=== PATIENT | female | born 1935 | race Caucasian/White ===

== ENCOUNTER 2016-09-28 15:42 | Observation (INO) | payer OTHER, MEDICARE ==
[~2016-09-28] VITALS: Ht 162.6 cm; Wt 85.2 kg
[2016-09-28 16:43] LABS: HEMATOCRIT 36.4 % (36.0-46.0); MCH 30.3 PG (29.0-34.0); MCV 91.9 FL (83-99); MEAN PLAT.VOLUME 10.3 uM^3 (9.5-12.4); PLATELET COUNT 195 K/uL (156-360); RBC DIS.WIDTH-CV 12.5 % (11.8-14.6); RBC DIS.WIDTH-SD 41.7 % (39-53); RED BLOOD COUNT 3.96 M/uL (3.80-5.20); WHITE BLOOD COUNT 7.1 K/uL (4.1-10.2)
[2016-09-28 16:54] LABS: CHLORIDE 105 mEq/L (99-109); POTASSIUM 4.3 mEq/L (3.7-5.4); SODIUM 138 mEq/L (136-147)
[2016-09-28 16:56] LABS: GLUCOSE 100 mg/dL (70-99)
[2016-09-28 16:58] LABS: ANION GAP 8 MEQ/L (2-14)
[2016-09-28 17:00] LABS: GFR ESTIMATE (CALCULATED) > 59 mL/min/
[2016-09-28 17:01] LABS: UREA NITROGEN (BUN) 27 mg/dL (9-23)
[2016-09-28 17:05] LABS: TROP-I INTERPRETATION NEGATIVE; TROPONIN-I < 0.01 ng/mL (0.0-0.30)
[2016-09-28] MEDS ORDERED: LOSARTAN POTASS50 MG PO (17:32)
[2016-09-28] MEDS ORDERED: LORAZEPAM0.5 MG PO (17:32)
[2016-09-28] MEDS ORDERED: SYNTHROID25 MCG PO (17:32)
[2016-09-28] MEDS ORDERED: MIRTAZAPINE30 MG PO (17:32)
[2016-09-28] MEDS ORDERED: NITROSTAT0.4 MG SL (17:34)
[2016-09-28] MEDS ORDERED: KEPPRA1000 MG PO (17:34)
[2016-09-28] MEDS ORDERED: OMEPRAZOLE20 MG PO (17:34)
[2016-09-28] MEDS ORDERED: LO-DOSE ASPIRIN81 M2 PO (17:34)
[2016-09-28] MEDS ORDERED: DESYREL100 MG PO (17:34)
[2016-09-28] MEDS ORDERED: OSTEO BI-FLEX1 EAC1 PO (17:34)
[2016-09-28] MEDS ORDERED: ZOLOFT100 MG PO (17:34)
[2016-09-28 17:41] LABS: ADD MIUA? YES; BILIRUBIN NEGATIVE; BLOOD NEGATIVE; COLOR YELLOW ((YELLOW)); GLUCOSE (STRIP) NEGATIVE; KETONES NEGATIVE; LEUKOCYTES TRACE; NITRITE POSITIVE; PROTEIN (STRIP) NEGATIVE; SPECIFIC GRAVITY 1.025 (1.000-1.030); UROBILINOGEN 0.2 MG/DL (0.2-1.0)
[2016-09-28 18:03] LABS: BACTERIA 3+ /HPF; CASTS NONE SEEN /LPF; CRYSTALS NONE SEEN; EPITHELIAL CELLS 1+ /HPF; MUCUS NONE SEEN /LPF; RED BLOOD CELLS 0-5 /HPF (0-5); UCUL ADDED? NO; WHITE BLOOD CELLS 0-5 /HPF (0-5)
[2016-09-28 19:52] VITALS: BP 151/70
[2016-09-28 23:59] VITALS: BP 100/49
[2016-09-29 00:16] LABS: TROP-I INTERPRETATION NEGATIVE; TROPONIN-I 0.01 ng/mL (0.0-0.30)
[2016-09-29 03:37] VITALS: BP 135/60
[2016-09-29 06:00] LABS: HEMATOCRIT 36.6 % (36.0-46.0); MCH 31.2 PG (29.0-34.0); MCHC 33.1 G/DL (30.0-36.0); MCV 94.3 FL (83-99); MEAN PLAT.VOLUME 10.6 uM^3 (9.5-12.4); PLATELET COUNT 179 K/uL (156-360); RBC DIS.WIDTH-CV 12.7 % (11.8-14.6); RBC DIS.WIDTH-SD 43.8 % (39-53); RED BLOOD COUNT 3.88 M/uL (3.80-5.20); WHITE BLOOD COUNT 5.6 K/uL (4.1-10.2)
[2016-09-29 06:25] LABS: TROP-I INTERPRETATION NEGATIVE; TROPONIN-I < 0.01 ng/mL (0.0-0.30)
[2016-09-29 06:52] LABS: ALKALINE PHOSPHATASE 63 IU/L (3-129); ANION GAP 8 MEQ/L (2-14); CHLORIDE 106 MEQ/L (99-109); GFR ESTIMATE (CALCULATED) > 59 mL/min/; GLUCOSE 92 mg/dL (70-99); POTASSIUM 4.1 MEQ/L (3.7-5.4); SAMPLE HEMOLYSIS CHECK 0; SAMPLE ICTERIC CHECK 0; SAMPLE LIPEMIA CHECK 0; SODIUM 138 MEQ/L (136-147); TOTAL BILIRUBIN 0.4 MG/DL (0.0-1.0); UREA NITROGEN (BUN) 22 mg/dL (9-23)
[2016-09-29 08:36] VITALS: BP 124/60
[2016-09-29 12:28] VITALS: BP 146/66
[2016-09-29] MEDS ORDERED: ATENOLOL25 MG PO (12:52)
== END 2016-09-29 13:52 | disposition home or self-care (01) ==
LOC: EME 15:42 → EDOF 18:14 → 5WEST 18:14
PROVIDERS: Internal Medicine; Physician Assistant
DX: R07.89 Other chest pain (principal); N17.9 Acute kidney failure, unspecified; I10 Essential (primary) hypertension; M17.0 Bilateral primary osteoarthritis of knee; G40.909 Epilepsy, unspecified, not intractable, without status epilepticus; E03.9 Hypothyroidism, unspecified; F32.9 Major depressive disorder, single episode, unspecified; F41.9 Anxiety disorder, unspecified; Z86.73 Personal history of transient ischemic attack (TIA), and cerebral infarction without residual deficits
CPT/HCPCS: 71020; 80048; 80053; 81003; 84484; 85027; 93005; 99281; 99284; G0378; J1644; J7030

== ENCOUNTER 2016-12-13 19:08 | Inpatient (IN) | payer OTHER, MEDICARE ==
[~2016-12-13] VITALS: Ht 175.3 cm; Wt 85.7 kg
[~2016-12-13 19:08] MED LIST: ATENOLOL25 MG PO; KEPPRA1000 MG PO; LO-DOSE ASPIRIN81 M2 PO; LORAZEPAM0.5 MG PO; LOSARTAN POTASS50 MG PO; MIRTAZAPINE30 MG PO; NITROSTAT0.4 MG SL; OMEPRAZOLE20 MG PO; OSTEO BI-FLEX1 EAC1 PO; SYNTHROID25 MCG PO; TRAZODONE HCL50 MG PO; ZOLOFT50 MG PO
[2016-12-13 20:48] LABS: HEMATOCRIT 35.3 % (36.0-46.0); MCH 30.8 PG (29.0-34.0); MCHC 33.1 G/DL (30.0-36.0); MCV 92.9 FL (83-99); MEAN PLAT.VOLUME 10.3 uM^3 (9.5-12.4); PLATELET COUNT 162 K/uL (156-360); RBC DIS.WIDTH-CV 12.6 % (11.8-14.6); WHITE BLOOD COUNT 8.6 K/uL (4.1-10.2)
[2016-12-13 21:02] LABS: CHLORIDE 109 mEq/L (99-109); POTASSIUM 3.5 mEq/L (3.7-5.4); SODIUM 141 mEq/L (136-147)
[2016-12-13 21:04] LABS: GLUCOSE 118 mg/dL (70-99)
[2016-12-13 21:05] LABS: ANION GAP 8 MEQ/L (2-14)
[2016-12-13 21:08] LABS: GFR ESTIMATE (CALCULATED) > 59 mL/min/
[2016-12-13 21:09] LABS: UREA NITROGEN (BUN) 18 mg/dL (9-23)
[2016-12-13 21:16] LABS: TROP-I INTERPRETATION NEGATIVE; TROPONIN-I 0.02 ng/mL (0.0-0.30)
[2016-12-13] MEDS ORDERED: FISH OIL 1,0001 EAC7 PO (23:59)
[2016-12-14 00:01] VITALS: BP 135/63
[2016-12-14] MEDS ORDERED: CALCIUM 600 WI1 EAC2 PO (00:01)
[2016-12-14] MEDS ORDERED: DAILY MULTIPLE1 EACH PO (00:01)
[2016-12-14] MEDS ORDERED: LOPRESSOR25 MG PO (00:02)
[2016-12-14 04:03] VITALS: BP 123/58
[2016-12-14 08:55] VITALS: BP 130/62
[2016-12-14 12:03] VITALS: BP 132/81
[2016-12-14 12:39] LABS: TROP-I INTERPRETATION NEGATIVE; TROPONIN-I 0.01 ng/mL (0.0-0.30)
[2016-12-14 19:12] LABS: TROP-I INTERPRETATION NEGATIVE; TROPONIN-I 0.03 ng/mL (0.0-0.30)
[2016-12-14 20:18] VITALS: BP 154/68
[2016-12-14 23:39] VITALS: BP 119/58
[2016-12-15 03:38] VITALS: BP 139/80
[2016-12-15 06:30] LABS: HEMATOCRIT 34.6 % (36.0-46.0); MCH 32.1 PG (29.0-34.0); MCHC 33.2 G/DL (30.0-36.0); MCV 96.6 FL (83-99); MEAN PLAT.VOLUME 10.6 uM^3 (9.5-12.4); PLATELET COUNT 150 K/uL (156-360); RBC DIS.WIDTH-CV 12.7 % (11.8-14.6); RBC DIS.WIDTH-SD 44.7 % (39-53); RED BLOOD COUNT 3.58 M/uL (3.80-5.20); WHITE BLOOD COUNT 5.9 K/uL (4.1-10.2)
[2016-12-15 06:55] LABS: ANION GAP 9 MEQ/L (2-14); CHLORIDE 107 MEQ/L (99-109); GFR ESTIMATE (CALCULATED) > 59 mL/min/; GLUCOSE 106 mg/dL (70-99); SAMPLE HEMOLYSIS CHECK 1; SAMPLE ICTERIC CHECK 0; SAMPLE LIPEMIA CHECK 0; SODIUM 140 MEQ/L (136-147); UREA NITROGEN (BUN) 13 mg/dL (9-23)
[2016-12-15 06:57] LABS: POTASSIUM 4.4 MEQ/L (3.7-5.4)
[2016-12-15 08:09] VITALS: BP 142/82
[2016-12-15 13:10] LABS: ADD MIUA? YES; BILIRUBIN NEGATIVE; BLOOD NEGATIVE; COLOR YELLOW ((YELLOW)); GLUCOSE (STRIP) NEGATIVE; KETONES NEGATIVE; LEUKOCYTES TRACE; NITRITE POSITIVE; PROTEIN (STRIP) NEGATIVE; SPECIFIC GRAVITY 1.019 (1.000-1.030); UROBILINOGEN 0.2 MG/DL (0.2-1.0)
[2016-12-15 14:01] LABS: BACTERIA 1+ /HPF; EPITHELIAL CELLS 2+ /HPF; MUCUS NONE SEEN /LPF; RED BLOOD CELLS 0-5 /HPF (0-5); WHITE BLOOD CELLS 0-5 /HPF (0-5)
[2016-12-15 20:05] VITALS: BP 160/80
[2016-12-15 23:41] VITALS: BP 140/78
[2016-12-16 05:52] VITALS: BP 160/88
[2016-12-16 07:26] VITALS: BP 183/86
[2016-12-16 11:32] VITALS: BP 146/66
[2016-12-16 20:11] VITALS: BP 150/69
[2016-12-16 21:00] VITALS: BP 132/64
[2016-12-16 23:44] VITALS: BP 124/60
[2016-12-17 04:27] VITALS: BP 172/85
[2016-12-17 04:42] VITALS: BP 138/66
[2016-12-17 07:37] VITALS: BP 184/86
[2016-12-17] MEDS ORDERED: LOPRESSOR50 MG PO (10:50)
[2016-12-17 10:54] VITALS: BP 118/58
[2016-12-17 14:18] VITALS: BP 126/68
== END 2016-12-17 17:50 | DRG 536 ==
LOC: EME 19:08 → EDOF 22:19 → 3EAST 22:19 → ENRESERV 22:21 → 3EAST 23:40
PROVIDERS: Emergency Medicine; Internal Medicine; Physician Assistant
DX: S32.452A Displaced transverse fracture of left acetabulum, initial encounter for closed fracture (principal); G40.209 Localization-related (focal) (partial) symptomatic epilepsy and epileptic syndromes with complex partial seizures, not intractable, without status epilepticus; I27.2 Other secondary pulmonary hypertension; W18.39XA Other fall on same level, initial encounter; Y93.01 Activity, walking, marching and hiking; E03.9 Hypothyroidism, unspecified; F32.9 Major depressive disorder, single episode, unspecified; I10 Essential (primary) hypertension; I35.0 Nonrheumatic aortic (valve) stenosis; K21.9 Gastro-esophageal reflux disease without esophagitis; K42.9 Umbilical hernia without obstruction or gangrene; K57.30 Diverticulosis of large intestine without perforation or abscess without bleeding; M48.06 Spinal stenosis, lumbar region; K44.9 Diaphragmatic hernia without obstruction or gangrene; K80.20 Calculus of gallbladder without cholecystitis without obstruction; M17.0 Bilateral primary osteoarthritis of knee; R29.6 Repeated falls; R32 Unspecified urinary incontinence; S80.01XA Contusion of right knee, initial encounter; S80.02XA Contusion of left knee, initial encounter; Y92.009 Unspecified place in unspecified non-institutional (private) residence as the place of occurrence of the external cause; Z79.82 Long term (current) use of aspirin; Z79.899 Other long term (current) drug therapy; Z82.3 Family history of stroke; Z82.49 Family history of ischemic heart disease and other diseases of the circulatory system; Z86.73 Personal history of transient ischemic attack (TIA), and cerebral infarction without residual deficits; Z87.820 Personal history of traumatic brain injury; Z90.710 Acquired absence of both cervix and uterus; M79.604 Pain in right leg; R55 Syncope and collapse; I08.1 Rheumatic disorders of both mitral and tricuspid valves; Z86.718 Personal history of other venous thrombosis and embolism; M51.36 Other intervertebral disc degeneration, lumbar region; I49.1 Atrial premature depolarization
CPT/HCPCS: 70450; 71010; 73502; 73560; 73564; 74176; 80048; 81003; 84443; 84484; 85027; 87086; 93005; 93306; 99281; 99284; J1644; J1956; J2270; J2405; J7030

== ENCOUNTER 2017-01-04 15:59 | Inpatient (IN) | payer OTHER, MEDICARE ==
[~2017-01-04] VITALS: Ht 165.1 cm; Wt 88.4 kg
[~2017-01-04 15:59] MED LIST changes: +CALCIUM 600 WI1 EAC2 PO; +COZAAR25 MG PO; +DAILY MULTIPLE1 EACH PO; +FISH OIL 1,0001 EAC7 PO; +LOPRESSOR25 MG PO; +LOPRESSOR50 MG PO; -LOSARTAN POTASS50 MG PO
[2017-01-04 16:48] LABS: MCH 30.8 PG (29.0-34.0); MCHC 33.5 G/DL (30.0-36.0); PLATELET COUNT 212 K/uL (156-360); RBC DIS.WIDTH-CV 12.3 % (11.8-14.6); RBC DIS.WIDTH-SD 41.9 % (39-53); RED BLOOD COUNT 4.02 M/uL (3.80-5.20); WHITE BLOOD COUNT 10.4 K/uL (4.1-10.2)
[2017-01-04 16:52] LABS: INTER. NORMALIZED RATIO 1.1; PROTHROMBIN TIME 12.4 SEC (10.2-12.9)
[2017-01-04 16:54] LABS: PTT 27.2 SEC (25-37)
[2017-01-04 16:55] LABS: CHLORIDE 105 mEq/L (99-109); POTASSIUM 3.7 mEq/L (3.7-5.4); SODIUM 138 mEq/L (136-147)
[2017-01-04 16:56] LABS: GLUCOSE 114 mg/dL (70-99)
[2017-01-04 16:58] LABS: ANION GAP 13 MEQ/L (2-14)
[2017-01-04 17:00] LABS: GFR ESTIMATE (CALCULATED) > 59 mL/min/
[2017-01-04 17:01] LABS: UREA NITROGEN (BUN) 21 mg/dL (9-23)
[2017-01-04 17:40] LABS: TROP-I INTERPRETATION NEGATIVE; TROPONIN-I 0.02 ng/mL (0.0-0.30)
[2017-01-04] MEDS ORDERED: ATIVAN0.5 MG PO ×2 (19:40)
[2017-01-04] MEDS ORDERED: COZAAR50 MG PO (19:42)
[2017-01-04] MEDS ORDERED: SERTRALINE HCL25 MG PO (19:46)
[2017-01-04] MEDS ORDERED: SENNA PLUS TAB1 EACH PO (19:46)
[2017-01-04] MEDS ORDERED: BIOFREEZE GEL TP (19:47)
[2017-01-04] MEDS ORDERED: LOPRESSOR25 MG PO (19:48)
[2017-01-04] MEDS ORDERED: LOPRESSOR50 MG PO (19:49)
[2017-01-04] MEDS ORDERED: PHILLIPS'400 MG/5 M PO (19:50)
[2017-01-04] MEDS ORDERED: DULCOLAX10 MG PR (19:50)
[2017-01-04] MEDS ORDERED: PERCOCET 5/31 TABLET PO (19:51)
[2017-01-04] MEDS ORDERED: TYLENOL REGULA325 MG PO (19:51)
[2017-01-04] MEDS ORDERED: MIRALAX119 GM PO (19:51)
[2017-01-04] MEDS ORDERED: ZOFRAN4 MG PO (19:52)
[2017-01-05 00:31] VITALS: BP 143/69
[2017-01-05 03:51] VITALS: BP 150/66
[2017-01-05 06:50] LABS: MCH 30.5 PG (29.0-34.0); MCHC 31.8 G/DL (30.0-36.0); MCV 95.9 FL (83-99); MEAN PLAT.VOLUME 9.9 uM^3 (9.5-12.4); PLATELET COUNT 211 K/uL (156-360); RBC DIS.WIDTH-CV 12.7 % (11.8-14.6); RBC DIS.WIDTH-SD 44.5 % (39-53); RED BLOOD COUNT 3.44 M/uL (3.80-5.20); WHITE BLOOD COUNT 7.8 K/uL (4.1-10.2)
[2017-01-05 07:03] LABS: POINT-OF-CARE METER ID UU14188577
[2017-01-05 07:49] LABS: ANION GAP 6 MEQ/L (2-14); CHLORIDE 106 MEQ/L (99-109); GFR ESTIMATE (CALCULATED) > 59 mL/min/; GLUCOSE 110 mg/dL (70-99); POTASSIUM 4.2 MEQ/L (3.7-5.4); SAMPLE HEMOLYSIS CHECK 0; SAMPLE ICTERIC CHECK 0; SAMPLE LIPEMIA CHECK 0; SODIUM 139 MEQ/L (136-147); UREA NITROGEN (BUN) 22 mg/dL (9-23)
[2017-01-05 08:04] VITALS: BP 147/86
[2017-01-05 12:01] VITALS: BP 143/90
[2017-01-05 19:25] VITALS: BP 140/68
[2017-01-05 23:45] VITALS: BP 98/52
[2017-01-06 03:45] VITALS: BP 109/54
[2017-01-06 06:45] LABS: MCH 30.6 PG (29.0-34.0); MCHC 31.5 G/DL (30.0-36.0); MEAN PLAT.VOLUME 10.2 uM^3 (9.5-12.4); PLATELET COUNT 171 K/uL (156-360); RBC DIS.WIDTH-CV 12.5 % (11.8-14.6); RBC DIS.WIDTH-SD 43.4 % (39-53); WHITE BLOOD COUNT 8.9 K/uL (4.1-10.2)
[2017-01-06 07:13] LABS: ANION GAP 6 MEQ/L (2-14); CHLORIDE 109 MEQ/L (99-109); GFR ESTIMATE (CALCULATED) > 59 mL/min/; GLUCOSE 102 mg/dL (70-99); POTASSIUM 4.1 MEQ/L (3.7-5.4); SAMPLE HEMOLYSIS CHECK 0; SAMPLE ICTERIC CHECK 0; SAMPLE LIPEMIA CHECK 0; SODIUM 139 MEQ/L (136-147); UREA NITROGEN (BUN) 22 mg/dL (9-23)
[2017-01-06 07:27] LABS: RED BLOOD COUNT 2.68 M/uL (3.80-5.20)
[2017-01-06 07:47] VITALS: BP 123/57
[2017-01-06 11:34] LABS: ADD MIUA? YES; BILIRUBIN NEGATIVE; BLOOD NEGATIVE; COLOR YELLOW ((YELLOW)); GLUCOSE (STRIP) NEGATIVE; KETONES 5; LEUKOCYTES NEGATIVE; NITRITE NEGATIVE; PROTEIN (STRIP) NEGATIVE; UROBILINOGEN 0.2 MG/DL (0.2-1.0)
[2017-01-06 11:50] VITALS: BP 122/56
[2017-01-06 12:18] LABS: RED BLOOD CELLS RARE /HPF (0-5); WHITE BLOOD CELLS RARE /HPF (0-5)
[2017-01-06 12:19] LABS: BACTERIA 2+ /HPF; CASTS NONE SEEN /LPF; CRYSTALS NONE SEEN; EPITHELIAL CELLS 2+ /HPF; MUCUS NONE SEEN /LPF; UCUL ADDED? YES
[2017-01-06 16:40] VITALS: BP 120/55
[2017-01-06 18:29] LABS: HEMATOCRIT 26.7 % (36.0-46.0); MCV 97.1 FL (83-99)
[2017-01-06 19:21] VITALS: BP 147/64
[2017-01-06 21:36] VITALS: BP 106/53
[2017-01-07 04:57] LABS: HEMATOCRIT 24.9 % (36.0-46.0); MCH 31.1 PG (29.0-34.0); MCHC 32.9 G/DL (30.0-36.0); MCV 94.3 FL (83-99); MEAN PLAT.VOLUME 9.9 uM^3 (9.5-12.4); PLATELET COUNT 169 K/uL (156-360); RBC DIS.WIDTH-CV 12.5 % (11.8-14.6); RBC DIS.WIDTH-SD 42.7 % (39-53); RED BLOOD COUNT 2.64 M/uL (3.80-5.20); WHITE BLOOD COUNT 8.3 K/uL (4.1-10.2)
[2017-01-07 05:03] LABS: INTER. NORMALIZED RATIO 1.3; PROTHROMBIN TIME 14.1 SEC (10.2-12.9)
[2017-01-07 05:06] LABS: PTT 26.7 SEC (25-37)
[2017-01-07 06:01] VITALS: BP 143/65
[2017-01-07 07:56] VITALS: BP 144/68
[2017-01-07 11:50] VITALS: BP 145/87
[2017-01-07 16:47] VITALS: BP 155/72
[2017-01-07 19:22] VITALS: BP 166/70
[2017-01-08] VITALS (7 sets, daily range): BP systolic 131–156; BP diastolic 61–73
[2017-01-08 06:50] LABS: HEMATOCRIT 23.9 % (36.0-46.0); MCHC 33.1 G/DL (30.0-36.0); MCV 96.8 FL (83-99); MEAN PLAT.VOLUME 10.5 uM^3 (9.5-12.4); PLATELET COUNT 147 K/uL (156-360); RBC DIS.WIDTH-SD 45.4 % (39-53); RED BLOOD COUNT 2.47 M/uL (3.80-5.20); WHITE BLOOD COUNT 6.4 K/uL (4.1-10.2)
[2017-01-09 03:19] VITALS: BP 118/53
[2017-01-09 07:25] VITALS: BP 165/71
[2017-01-09 08:38] LABS: HEMATOCRIT 26.5 % (36.0-46.0); MCH 30.5 PG (29.0-34.0); MCHC 30.6 G/DL (30.0-36.0); MCV 99.6 FL (83-99); MEAN PLAT.VOLUME 10.7 uM^3 (9.5-12.4); PLATELET COUNT 172 K/uL (156-360); RBC DIS.WIDTH-SD 46.7 % (39-53); RED BLOOD COUNT 2.66 M/uL (3.80-5.20); WHITE BLOOD COUNT 7.1 K/uL (4.1-10.2)
[2017-01-09 11:12] VITALS: BP 123/59
[2017-01-09 15:37] VITALS: BP 130/88
[2017-01-09 20:15] VITALS: BP 133/66
[2017-01-09 23:45] VITALS: BP 138/69
[2017-01-10 04:15] VITALS: BP 168/74
[2017-01-10 07:12] VITALS: BP 134/66
[2017-01-10 08:10] LABS: HEMATOCRIT 25.1 % (36.0-46.0); MCH 30.9 PG (29.0-34.0); MCHC 32.7 G/DL (30.0-36.0); MEAN PLAT.VOLUME 10.8 uM^3 (9.5-12.4); PLATELET COUNT 206 K/uL (156-360); RBC DIS.WIDTH-CV 12.9 % (11.8-14.6); RBC DIS.WIDTH-SD 44.7 % (39-53); RED BLOOD COUNT 2.65 M/uL (3.80-5.20); WHITE BLOOD COUNT 6.1 K/uL (4.1-10.2)
[2017-01-10 08:11] LABS: MCV 94.7 FL (83-99)
[2017-01-10] MEDS ORDERED: LOPRESSOR50 MG PO (10:41)
[2017-01-10] MEDS ORDERED: ELIQUIS5 MG PO (10:41)
[2017-01-10] MEDS ORDERED: AMLODIPINE BESYL5 MG PO (10:41)
[2017-01-10] MEDS ORDERED: SILDENAFIL20 MG PO (10:41)
[2017-01-10 11:14] VITALS: BP 135/66
== END 2017-01-10 12:39 | DRG 956 ==
LOC: EME 15:59 → 3EAST 21:53 → EDOF 21:53 → ENRESERV 21:59 → 3EAST 23:17
PROVIDERS: Emergency Medicine; Hospitalist; Orthopaedic Surgery; Physician Assistant
PROC: 0SRS019 Replacement of Left Hip Joint, Femoral Surface with Metal Synthetic Substitute, Cemented, Open Approach (ICD-10-PCS; principal; 2017-01-05)
DX: S72.012A Unspecified intracapsular fracture of left femur, initial encounter for closed fracture (principal); I26.99 Other pulmonary embolism without acute cor pulmonale; T79.0XXA Air embolism (traumatic), initial encounter; I82.812 Embolism and thrombosis of superficial veins of left lower extremity; D62 Acute posthemorrhagic anemia; W23.1XXA Caught, crushed, jammed, or pinched between stationary objects, initial encounter; I10 Essential (primary) hypertension; I27.2 Other secondary pulmonary hypertension; G40.909 Epilepsy, unspecified, not intractable, without status epilepticus; F41.9 Anxiety disorder, unspecified; R35.0 Frequency of micturition; R39.15 Urgency of urination; K44.9 Diaphragmatic hernia without obstruction or gangrene; E03.9 Hypothyroidism, unspecified; K21.9 Gastro-esophageal reflux disease without esophagitis; E66.9 Obesity, unspecified; S32.402D Unspecified fracture of left acetabulum, subsequent encounter for fracture with routine healing; W18.39XD Other fall on same level, subsequent encounter; Y92.531 Health care provider office as the place of occurrence of the external cause; Z79.82 Long term (current) use of aspirin; Z86.718 Personal history of other venous thrombosis and embolism; Z68.32 Body mass index [BMI] 32.0-32.9, adult; Z87.820 Personal history of traumatic brain injury; Z90.710 Acquired absence of both cervix and uterus; Z86.73 Personal history of transient ischemic attack (TIA), and cerebral infarction without residual deficits; Z88.0 Allergy status to penicillin; Z82.3 Family history of stroke; Z82.49 Family history of ischemic heart disease and other diseases of the circulatory system
CPT/HCPCS: 71010; 71275; 72170; 73502; 80048; 81003; 82272; 82948; 84484; 85014; 85018; 85027; 85610; 85730; 86850; 86900; 86901; 87086; 93005; 93970; 94010; 94799; 99281; 99285; C1713; J0131; J0330; J1100; J1170; J1644; J1650; J1885; J2270; J2405; J2710; J3010; J7030

== ENCOUNTER 2017-01-10 19:35 | Emergency (ER) | payer OTHER, MEDICARE ==
[~2017-01-10] VITALS: Ht 162.6 cm; Wt 91.8 kg
[~2017-01-10 19:35] MED LIST changes: +AMLODIPINE BESYL5 MG PO; +ATIVAN0.5 MG PO; +BIOFREEZE GEL TP; +COZAAR50 MG PO; +DULCOLAX10 MG PR; +ELIQUIS5 MG PO; +MIRALAX119 GM PO; +PERCOCET 5/31 TABLET PO; +PHILLIPS'400 MG/5 M PO; +SENNA PLUS TAB1 EACH PO; +SERTRALINE HCL25 MG PO; +SILDENAFIL20 MG PO; +TYLENOL REGULA325 MG PO; +ZOFRAN4 MG PO
[2017-01-11 01:14] VITALS: BP 147/66
== END 2017-01-11 01:16 ==
LOC: EME → EDBD 19:35 → EME 19:35
DX: S09.90XA Unspecified injury of head, initial encounter (principal); W18.39XA Other fall on same level, initial encounter; Y92.121 Bathroom in nursing home as the place of occurrence of the external cause; Z96.642 Presence of left artificial hip joint; Z98.890 Other specified postprocedural states; Z79.01 Long term (current) use of anticoagulants; Z79.82 Long term (current) use of aspirin; I10 Essential (primary) hypertension; M85.88 Other specified disorders of bone density and structure, other site; M47.892 Other spondylosis, cervical region
CPT/HCPCS: 70450; 72125; 73502; 99281; 99285

== ENCOUNTER 2017-09-13 08:04 | Observation (INO) | payer OTHER, MEDICARE ==
[~2017-09-13] VITALS: Ht 165.1 cm; Wt 88.6 kg
[~2017-09-13 08:04] MED LIST changes: -SERTRALINE HCL25 MG PO; +ZOLOFT100 MG PO
[2017-09-13 08:49] LABS: BASOPHIL (%) 0.9 % (0-1); BASOPHIL COUNT 0.1 K/uL (0-0.1); EOSINOPHIL (%) 1.7 % (0-5); EOSINOPHIL COUNT 0.1 K/uL (0-0.3); HEMATOCRIT 35.2 % (36.0-46.0); HEMOGLOBIN 11.6 G/DL (11.9-15.5); IMMATURE GRANULOCYTE (%) 0.3 % (0.0-0.7); LYMPHOCYTE (%) 14.6 % (15-42); LYMPHOCYTE COUNT 1.1 K/uL (1.0-2.8); MCH 30.4 PG (29.0-34.0); MCV 92.4 FL (83-99); MONOCYTE (%) 6.8 % (3-12); MONOCYTE COUNT 0.5 K/uL (0-0.8); NEUTROPHIL (%) 75.7 % (45-76); NEUTROPHIL COUNT 5.7 K/uL (1.8-6.4); PLATELET COUNT 182 K/uL (156-360); RBC DIS.WIDTH-CV 13.2 % (11.8-14.6); RBC DIS.WIDTH-SD 44.5 % (39-53); RED BLOOD COUNT 3.81 M/uL (3.80-5.20); WHITE BLOOD COUNT 7.5 K/uL (4.1-10.2)
[2017-09-13 09:00] LABS: CHLORIDE 108 mEq/L (99-109); POTASSIUM 4.1 mEq/L (3.7-5.4); SODIUM 140 mEq/L (136-147)
[2017-09-13 09:01] LABS: GLUCOSE 102 mg/dL (70-99)
[2017-09-13 09:05] LABS: CREATININE 0.8 mg/dL (0.6-1.3); GFR ESTIMATE (CALCULATED) > 59 mL/min/
[2017-09-13 09:06] LABS: UREA NITROGEN (BUN) 21 mg/dL (9-23)
[2017-09-13 09:09] LABS: TROP-I INTERPRETATION NEGATIVE; TROPONIN-I < 0.01 ng/mL (0.0-0.30)
[2017-09-13] MEDS ORDERED: ATIVAN0.5 MG PO (10:37)
[2017-09-13] MEDS ORDERED: K-DUR20 MEQ PO (10:38)
[2017-09-13] MEDS ORDERED: LOPRESSOR100 M1 PO (10:40)
[2017-09-13 11:19] VITALS: BP 169/74
[2017-09-13 16:32] LABS: TROP-I INTERPRETATION NEGATIVE; TROPONIN-I < 0.01 ng/mL (0.0-0.30)
[2017-09-13 17:00] VITALS: BP 173/78
[2017-09-13 18:40] VITALS: BP 148/71
[2017-09-13 22:10] LABS: TROP-I INTERPRETATION NEGATIVE; TROPONIN-I < 0.01 ng/mL (0.0-0.30)
[2017-09-13 23:54] VITALS: BP 116/71
[2017-09-14 04:38] VITALS: BP 136/61
[2017-09-14 05:42] LABS: HEMATOCRIT 35.2 % (36.0-46.0); HEMOGLOBIN 11.2 G/DL (11.9-15.5); MCH 29.9 PG (29.0-34.0); MCHC 31.8 G/DL (30.0-36.0); MCV 93.9 FL (83-99); PLATELET COUNT 177 K/uL (156-360); RBC DIS.WIDTH-CV 13.2 % (11.8-14.6); RBC DIS.WIDTH-SD 45.9 % (39-53); RED BLOOD COUNT 3.75 M/uL (3.80-5.20); WHITE BLOOD COUNT 5.7 K/uL (4.1-10.2)
[2017-09-14 06:16] LABS: CHLORIDE 108 MEQ/L (99-109); GFR ESTIMATE (CALCULATED) 57 mL/min/; GLUCOSE 95 mg/dL (70-99); SODIUM 138 MEQ/L (136-147); UREA NITROGEN (BUN) 22 mg/dL (9-23)
[2017-09-14 07:20] VITALS: BP 141/63
[2017-09-14] MEDS ORDERED: ATORVASTATIN CA40 MG PO (08:37)
[2017-09-14] MEDS ORDERED: LEVOFLOXACIN750 MG PO (08:37)
== END 2017-09-14 20:21 | disposition home or self-care (01) ==
LOC: EME → EDBD 08:04 → EME 08:04 → 4SOUTH 09:55 → EDOF 09:55 → ENRESERV 10:00 → 4SOUTH 10:46
PROVIDERS: Emergency Medicine; Hospitalist
PROC: 4A023N7 Measurement of Cardiac Sampling and Pressure, Left Heart, Percutaneous Approach (ICD-10-PCS; principal; 2017-09-14)
PROC: B2111ZZ Fluoroscopy of Multiple Coronary Arteries using Low Osmolar Contrast (ICD-10-PCS; principal; 2017-09-14)
PROC: B2151ZZ Fluoroscopy of Left Heart using Low Osmolar Contrast (ICD-10-PCS; principal; 2017-09-14)
DX: R07.89 Other chest pain (principal); J18.9 Pneumonia, unspecified organism; I27.20 Pulmonary hypertension, unspecified; Z86.73 Personal history of transient ischemic attack (TIA), and cerebral infarction without residual deficits; Z87.820 Personal history of traumatic brain injury; Z86.718 Personal history of other venous thrombosis and embolism; I10 Essential (primary) hypertension; K21.9 Gastro-esophageal reflux disease without esophagitis; F41.9 Anxiety disorder, unspecified; F32.9 Major depressive disorder, single episode, unspecified; E03.9 Hypothyroidism, unspecified; G40.909 Epilepsy, unspecified, not intractable, without status epilepticus; Z88.0 Allergy status to penicillin; Z79.82 Long term (current) use of aspirin; E78.5 Hyperlipidemia, unspecified; Z90.710 Acquired absence of both cervix and uterus; Z96.642 Presence of left artificial hip joint
CPT/HCPCS: 71045; 71275; 80048; 84484; 85025; 85027; 85379; 93005; 93970; 99281; 99284; C1769; C1887; G0378; G8978 GP CJ; G8979 GP CH; G8987 GO CJ; G8988 CI; J1644; J1650; J2250; J3010

== ENCOUNTER → 2017-11-29 | Outpatient (CLI) | payer OTHER, MEDICARE ==
[~2017-11-29] VITALS: Ht 160 cm; Wt 90.3 kg
[~2017-11-29] MED LIST changes: +ATORVASTATIN CA40 MG PO; +K-DUR20 MEQ PO; +LEVOFLOXACIN750 MG PO; +LIPITOR40 MG PO; +LOPRESSOR100 M1 PO; -MIRTAZAPINE30 MG PO; +REMERON45 MG PO
== END | disposition home or self-care (01) ==
LOC: AMB 09:22
PROC: 0DB68ZX Excision of Stomach, Via Natural or Artificial Opening Endoscopic, Diagnostic (ICD-10-PCS; principal; 2017-11-29)
DX: K44.9 Diaphragmatic hernia without obstruction or gangrene (principal); K29.70 Gastritis, unspecified, without bleeding; K21.9 Gastro-esophageal reflux disease without esophagitis; I10 Essential (primary) hypertension; E03.9 Hypothyroidism, unspecified; E78.5 Hyperlipidemia, unspecified; E66.9 Obesity, unspecified; Z68.33 Body mass index [BMI] 33.0-33.9, adult; G40.909 Epilepsy, unspecified, not intractable, without status epilepticus; I27.20 Pulmonary hypertension, unspecified; Z90.710 Acquired absence of both cervix and uterus; Z90.79 Acquired absence of other genital organ(s); Z90.722 Acquired absence of ovaries, bilateral; Z82.49 Family history of ischemic heart disease and other diseases of the circulatory system; Z83.3 Family history of diabetes mellitus; Z80.8 Family history of malignant neoplasm of other organs or systems
CPT/HCPCS: 71045; 88305; 88342 TC

== ENCOUNTER 2017-12-19 15:23 | Inpatient (IN) | payer OTHER, MEDICARE ==
[~2017-12-19] VITALS: Ht 165.1 cm; Wt 95.0 kg
[~2017-12-19 15:23] MED LIST changes: -LOPRESSOR100 M1 PO; +TOPROL XL200 MG PO
[2017-12-19 17:00] LABS: BASOPHIL (%) 0.7 % (0-1); BASOPHIL COUNT 0.1 K/uL (0-0.1); EOSINOPHIL (%) 0.8 % (0-5); EOSINOPHIL COUNT 0.1 K/uL (0-0.3); HEMATOCRIT 34.6 % (36.0-46.0); HEMOGLOBIN 11.3 G/DL (11.9-15.5); IMMATURE GRANULOCYTE (%) 0.4 % (0.0-0.7); LYMPHOCYTE (%) 11.6 % (15-42); MCH 30.2 PG (29.0-34.0); MCHC 32.7 G/DL (30.0-36.0); MCV 92.5 FL (83-99); MONOCYTE COUNT 0.5 K/uL (0-0.8); NEUTROPHIL (%) 80.5 % (45-76); NEUTROPHIL COUNT 6.9 K/uL (1.8-6.4); PLATELET COUNT 135 K/uL (156-360); RBC DIS.WIDTH-CV 13.4 % (11.8-14.6); RBC DIS.WIDTH-SD 45.3 % (39-53); RED BLOOD COUNT 3.74 M/uL (3.80-5.20); WHITE BLOOD COUNT 8.5 K/uL (4.1-10.2)
[2017-12-19 17:11] LABS: ALBUMIN 3.3 g/dL (3.2-4.8); CHLORIDE 103 mEq/L (99-109); POTASSIUM 4.6 mEq/L (3.7-5.4); SODIUM 135 mEq/L (136-147)
[2017-12-19 17:14] LABS: GLUCOSE 118 mg/dL (70-99); TOTAL PROTEIN 6.5 g/dL (6.4-8.3)
[2017-12-19 17:16] LABS: TOTAL BILIRUBIN 0.4 mg/dL (0.0-1.0)
[2017-12-19 17:17] LABS: ALKALINE PHOSPHATASE 73 IU/L (3-129); CREATININE 0.9 mg/dL (0.6-1.3); GFR ESTIMATE (CALCULATED) > 59 mL/min/
[2017-12-19 17:18] LABS: UREA NITROGEN (BUN) 18 mg/dL (9-23)
[2017-12-19 17:19] LABS: AST (GOT) 18 IU/L (2-34)
[2017-12-19 17:20] LABS: ALT (GPT) 13 IU/L (3-49)
[2017-12-19 17:24] LABS: TROP-I INTERPRETATION NEGATIVE; TROPONIN-I < 0.01 ng/mL (0.0-0.30)
[2017-12-19] MEDS ORDERED: ONDANSETRON HCL4 MG PO (19:06)
[2017-12-19 20:47] LABS: APPEARANCE CLOUDY ((CLEAR)); BILIRUBIN NEGATIVE; BLOOD SMALL; COLOR YELLOW ((YELLOW)); GLUCOSE (STRIP) NEGATIVE; KETONES NEGATIVE; LEUKOCYTES LARGE; NITRITE POSITIVE; PROTEIN (STRIP) NEGATIVE; SPECIFIC GRAVITY 1.009 (1.000-1.030); UROBILINOGEN 0.2 MG/DL (0.2-1.0)
[2017-12-19 21:19] LABS: WHITE BLOOD CELLS TNTC /HPF (0-5)
[2017-12-19 21:20] LABS: EPITHELIAL CELLS RARE /HPF
[2017-12-19 21:21] LABS: BACTERIA 3+ /HPF; MUCUS NONE SEEN /LPF; UCUL ADDED? YES
[2017-12-19 23:32] VITALS: BP 142/86
[2017-12-20 04:37] VITALS: BP 129/70
[2017-12-20 06:41] LABS: HEMATOCRIT 31.7 % (36.0-46.0); HEMOGLOBIN 10.4 G/DL (11.9-15.5); MCH 30.1 PG (29.0-34.0); MCHC 32.8 G/DL (30.0-36.0); MCV 91.6 FL (83-99); PLATELET COUNT 150 K/uL (156-360); RBC DIS.WIDTH-CV 13.7 % (11.8-14.6); RBC DIS.WIDTH-SD 45.5 % (39-53); RED BLOOD COUNT 3.46 M/uL (3.80-5.20); WHITE BLOOD COUNT 7.7 K/uL (4.1-10.2)
[2017-12-20 07:09] LABS: CHLORIDE 100 MEQ/L (99-109); CREATININE 0.9 MG/DL (0.6-1.3); GFR ESTIMATE (CALCULATED) > 59 mL/min/; GLUCOSE 125 mg/dL (70-99); POTASSIUM 4.4 MEQ/L (3.7-5.4); SODIUM 135 MEQ/L (136-147); UREA NITROGEN (BUN) 17 mg/dL (9-23)
[2017-12-20 07:36] VITALS: BP 136/60
[2017-12-20 11:12] VITALS: BP 152/67
[2017-12-20 15:39] VITALS: BP 179/73
[2017-12-20 23:00] VITALS: BP 172/74
[2017-12-21 04:21] VITALS: BP 90/50
[2017-12-21 04:37] LABS: APPEARANCE SL.HAZY ((CLEAR)); BILIRUBIN NEGATIVE; BLOOD SMALL; COLOR YELLOW ((YELLOW)); GLUCOSE (STRIP) NEGATIVE; KETONES NEGATIVE; LEUKOCYTES SMALL; NITRITE NEGATIVE; PROTEIN (STRIP) 30; UROBILINOGEN 0.2 MG/DL (0.2-1.0)
[2017-12-21 04:57] LABS: BACTERIA NONE SEEN /HPF; EPITHELIAL CELLS NONE SEEN /HPF; MUCUS TRACE /LPF; UCUL ADDED? YES; WHITE BLOOD CELLS 30-40 /HPF (0-5)
[2017-12-21 05:18] VITALS: BP 101/50
[2017-12-21 07:26] VITALS: BP 105/51
[2017-12-21 11:22] VITALS: BP 121/55
[2017-12-21 16:00] VITALS: BP 121/55
[2017-12-21 20:06] VITALS: BP 120/53
[2017-12-22] VITALS: BP 130/60
[2017-12-22 03:56] VITALS: BP 123/56
[2017-12-22 06:05] LABS: BASOPHIL (%) 0.3 % (0-1); EOSINOPHIL (%) 0.5 % (0-5); HEMATOCRIT 23.9 % (36.0-46.0); IMMATURE GRANULOCYTE (%) 0.3 % (0.0-0.7); LYMPHOCYTE (%) 17.9 % (15-42); LYMPHOCYTE COUNT 1.6 K/uL (1.0-2.8); MCH 30.2 PG (29.0-34.0); MCHC 32.6 G/DL (30.0-36.0); MCV 92.6 FL (83-99); MONOCYTE (%) 9.9 % (3-12); MONOCYTE COUNT 0.9 K/uL (0-0.8); NEUTROPHIL (%) 71.1 % (45-76); NEUTROPHIL COUNT 6.2 K/uL (1.8-6.4); PLATELET COUNT 114 K/uL (156-360); RBC DIS.WIDTH-CV 13.8 % (11.8-14.6); RBC DIS.WIDTH-SD 47.4 % (39-53); WHITE BLOOD COUNT 8.8 K/uL (4.1-10.2)
[2017-12-22 06:07] LABS: HEMOGLOBIN 7.8 G/DL (11.9-15.5); RED BLOOD COUNT 2.58 M/uL (3.80-5.20)
[2017-12-22 06:33] LABS: CHLORIDE 102 MEQ/L (99-109); CREATININE 0.9 MG/DL (0.6-1.3); GFR ESTIMATE (CALCULATED) > 59 mL/min/; GLUCOSE 129 mg/dL (70-99); POTASSIUM 4.2 MEQ/L (3.7-5.4); SODIUM 135 MEQ/L (136-147)
[2017-12-22 06:36] LABS: UREA NITROGEN (BUN) 27 mg/dL (9-23)
[2017-12-22 07:19] VITALS: BP 142/65
[2017-12-22 11:30] VITALS: BP 132/58
[2017-12-22 16:14] VITALS: BP 156/74
[2017-12-22 19:38] VITALS: BP 142/60
[2017-12-23 04:31] VITALS: BP 148/75
[2017-12-23 07:47] VITALS: BP 146/68
[2017-12-23 09:04] LABS: HEMATOCRIT 23.3 % (36.0-46.0); HEMOGLOBIN 7.5 G/DL (11.9-15.5); MCH 30.2 PG (29.0-34.0); MCHC 32.2 G/DL (30.0-36.0); PLATELET COUNT 134 K/uL (156-360); RBC DIS.WIDTH-CV 13.9 % (11.8-14.6); RED BLOOD COUNT 2.48 M/uL (3.80-5.20); WHITE BLOOD COUNT 8.5 K/uL (4.1-10.2)
[2017-12-23 11:06] VITALS: BP 150/70
[2017-12-23 15:02] VITALS: BP 164/72
[2017-12-23 20:29] VITALS: BP 125/56
[2017-12-23 23:45] VITALS: BP 70/40
[2017-12-24] VITALS (16 sets, daily range): BP systolic 78–165; BP diastolic 36–74
[2017-12-24 01:02] LABS: HEMATOCRIT 21.6 % (36.0-46.0); MCV 94.3 FL (83-99)
[2017-12-24 01:17] LABS: ALBUMIN 2.4 g/dL (3.2-4.8); CHLORIDE 106 mEq/L (99-109); POTASSIUM 4.2 mEq/L (3.7-5.4); SODIUM 138 mEq/L (136-147)
[2017-12-24 01:19] LABS: GLUCOSE 110 mg/dL (70-99)
[2017-12-24 01:23] LABS: ALKALINE PHOSPHATASE 66 IU/L (3-129); CREATININE 0.8 mg/dL (0.6-1.3); GFR ESTIMATE (CALCULATED) > 59 mL/min/
[2017-12-24 01:24] LABS: UREA NITROGEN (BUN) 24 mg/dL (9-23)
[2017-12-24 01:29] LABS: ALT (GPT) 27 IU/L (3-49); AST (GOT) 39 IU/L (2-34); TOTAL BILIRUBIN 0.8 mg/dL (0.0-1.0); TOTAL PROTEIN 4.9 g/dL (6.4-8.3)
[2017-12-24 01:33] LABS: TROP-I INTERPRETATION NEGATIVE; TROPONIN-I < 0.01 ng/mL (0.0-0.30)
[2017-12-24 07:46] LABS: HEMATOCRIT 25.7 % (36.0-46.0); HEMOGLOBIN 8.4 G/DL (11.9-15.5); MCHC 32.7 G/DL (30.0-36.0); MCV 94.8 FL (83-99); PLATELET COUNT 134 K/uL (156-360); RBC DIS.WIDTH-CV 13.8 % (11.8-14.6); RBC DIS.WIDTH-SD 47.8 % (39-53); RED BLOOD COUNT 2.71 M/uL (3.80-5.20); WHITE BLOOD COUNT 7.1 K/uL (4.1-10.2)
[2017-12-24 11:16] LABS: APPEARANCE CLOUDY ((CLEAR)); BILIRUBIN NEGATIVE; BLOOD SMALL; COLOR YELLOW ((YELLOW)); GLUCOSE (STRIP) NEGATIVE; KETONES NEGATIVE; LEUKOCYTES TRACE; NITRITE NEGATIVE; PROTEIN (STRIP) NEGATIVE; SPECIFIC GRAVITY 1.017 (1.000-1.030)
[2017-12-24 11:38] LABS: BACTERIA RARE /HPF; EPITHELIAL CELLS 1+ /HPF; MUCUS NONE SEEN /LPF; RED BLOOD CELLS 0-5 /HPF (0-5); UCUL ADDED? NO; WHITE BLOOD CELLS 0-5 /HPF (0-5)
[2017-12-25 05:10] VITALS: BP 180/77
[2017-12-25 07:09] LABS: HEMATOCRIT 30.9 % (36.0-46.0); MCH 31.3 PG (29.0-34.0); MCHC 33.7 G/DL (30.0-36.0); MCV 93.1 FL (83-99); RBC DIS.WIDTH-CV 14.1 % (11.8-14.6); WHITE BLOOD COUNT 6.8 K/uL (4.1-10.2)
[2017-12-25 07:12] LABS: HEMOGLOBIN 10.4 G/DL (11.9-15.5); PLATELET COUNT 179 K/uL (156-360); RED BLOOD COUNT 3.32 M/uL (3.80-5.20)
[2017-12-25 08:01] VITALS: BP 155/77
[2017-12-25 08:45] LABS: CHLORIDE 104 MEQ/L (99-109); CREATININE 0.7 MG/DL (0.6-1.3); GFR ESTIMATE (CALCULATED) > 59 mL/min/; GLUCOSE 102 mg/dL (70-99); MAGNESIUM 1.7 mg/dl (1.3-2.7); POTASSIUM 3.8 MEQ/L (3.7-5.4); SODIUM 139 MEQ/L (136-147); UREA NITROGEN (BUN) 18 mg/dL (9-23)
[2017-12-25 16:01] VITALS: BP 168/52
[2017-12-25 19:27] VITALS: BP 119/65
[2017-12-25 23:02] VITALS: BP 160/82
[2017-12-26 05:26] VITALS: BP 150/71
[2017-12-26 06:20] LABS: BASOPHIL (%) 0.8 % (0-1); BASOPHIL COUNT 0.1 K/uL (0-0.1); EOSINOPHIL (%) 2.9 % (0-5); EOSINOPHIL COUNT 0.2 K/uL (0-0.3); HEMOGLOBIN 10.1 G/DL (11.9-15.5); IMMATURE GRANULOCYTE (%) 0.4 % (0.0-0.7); LYMPHOCYTE (%) 24.7 % (15-42); LYMPHOCYTE COUNT 1.8 K/uL (1.0-2.8); MCH 31.7 PG (29.0-34.0); MCHC 33.7 G/DL (30.0-36.0); MONOCYTE (%) 8.7 % (3-12); MONOCYTE COUNT 0.6 K/uL (0-0.8); NEUTROPHIL (%) 62.5 % (45-76); NEUTROPHIL COUNT 4.5 K/uL (1.8-6.4); PLATELET COUNT 203 K/uL (156-360); RBC DIS.WIDTH-SD 47.6 % (39-53); RED BLOOD COUNT 3.19 M/uL (3.80-5.20); WHITE BLOOD COUNT 7.2 K/uL (4.1-10.2)
[2017-12-26 06:48] LABS: CHLORIDE 104 MEQ/L (99-109); CREATININE 0.7 MG/DL (0.6-1.3); GFR ESTIMATE (CALCULATED) > 59 mL/min/; GLUCOSE 114 mg/dL (70-99); POTASSIUM 3.7 MEQ/L (3.7-5.4); SODIUM 137 MEQ/L (136-147); UREA NITROGEN (BUN) 19 mg/dL (9-23)
[2017-12-26 07:30] VITALS: BP 156/81
[2017-12-26 11:04] VITALS: BP 136/74
[2017-12-26 16:16] VITALS: BP 179/87
[2017-12-27 00:09] VITALS: BP 137/70
[2017-12-27 04:59] VITALS: BP 144/71
[2017-12-27 08:35] VITALS: BP 129/60
[2017-12-27] MEDS ORDERED: LOVENOX30 MG/0.3 SC (11:25)
[2017-12-27 11:28] VITALS: BP 120/86
== END 2017-12-27 13:40 | DRG 470 ==
LOC: EME 15:23 → EDOF 21:53 → 4EAST 21:53 → 3EAST 21:53 → ENRESERV 21:57 → 3EAST 22:51 → ENRESERV 12-24 01:21 → 4EAST 12-24 01:58 → 3EAST 12-24 14:10 → ENRESERV 12-24 14:13 → 3EAST 12-24 15:46
PROVIDERS: Emergency Medicine; Hospitalist; Internal Medicine
PROC: 0SRR0JA Replacement of Right Hip Joint, Femoral Surface with Synthetic Substitute, Uncemented, Open Approach (ICD-10-PCS; principal; 2017-12-20)
PROC: 30233N1 Transfusion of Nonautologous Red Blood Cells into Peripheral Vein, Percutaneous Approach (ICD-10-PCS; 2017-12-24)
DX: S72.001A Fracture of unspecified part of neck of right femur, initial encounter for closed fracture (principal); S72.111A Displaced fracture of greater trochanter of right femur, initial encounter for closed fracture; W01.0XXA Fall on same level from slipping, tripping and stumbling without subsequent striking against object, initial encounter; Y92.000 Kitchen of unspecified non-institutional (private) residence as the place of occurrence of the external cause; D64.9 Anemia, unspecified; N39.0 Urinary tract infection, site not specified; B96.20 Unspecified Escherichia coli [E. coli] as the cause of diseases classified elsewhere; F05 Delirium due to known physiological condition; I95.9 Hypotension, unspecified; I10 Essential (primary) hypertension; E03.9 Hypothyroidism, unspecified; F03.90 Unspecified dementia, unspecified severity, without behavioral disturbance, psychotic disturbance, mood disturbance, and anxiety; G40.909 Epilepsy, unspecified, not intractable, without status epilepticus; I27.20 Pulmonary hypertension, unspecified; K21.9 Gastro-esophageal reflux disease without esophagitis; K44.9 Diaphragmatic hernia without obstruction or gangrene; M19.90 Unspecified osteoarthritis, unspecified site; E66.9 Obesity, unspecified; Z68.37 Body mass index [BMI] 37.0-37.9, adult; R29.6 Repeated falls; M19.011 Primary osteoarthritis, right shoulder; G43.909 Migraine, unspecified, not intractable, without status migrainosus; D17.21 Benign lipomatous neoplasm of skin and subcutaneous tissue of right arm; F32.9 Major depressive disorder, single episode, unspecified; F41.1 Generalized anxiety disorder; Z86.711 Personal history of pulmonary embolism; Z86.718 Personal history of other venous thrombosis and embolism; Z86.73 Personal history of transient ischemic attack (TIA), and cerebral infarction without residual deficits; Z90.710 Acquired absence of both cervix and uterus; Z79.82 Long term (current) use of aspirin; Z88.0 Allergy status to penicillin
CPT/HCPCS: 70450; 71045; 72100; 73030; 73502; 80048; 80053; 81003; 82272; 83605; 83735; 83880; 84484; 85014; 85018; 85025; 85027; 86850; 86900; 86901; 86920; 87040; 87077; 87086; 87086 GA; 87186; 93005; 94799; 97530 GO; 97530 GP; 99281; 99285; J0131; J0330; J0690; J0696; J0744; J1644; J1650; J1885; J1953; J2060; J2270; J2405; J3010; J7040; J7050; J7120; P9016